=== PATIENT | male | born 1970 | race Caucasian/White ===

== ENCOUNTER → 2021-09-01 09:27 | Outpatient (CLI) | payer BC, SELFPAY ==
[2021-09-01 19:36] LABS: SARS-CoV-2 RNA PCR Positive
== END ==
PROVIDERS: PCP Family Medicine; Visit Provider Family Medicine
DX: U07.1 COVID-19 (principal)
CPT/HCPCS: C9803; U0003; U0005

== ENCOUNTER 2021-10-19 00:16 | Day surgery (SDC) | payer BC, SELFPAY ==
[2021-04-23 14:46] VITALS: BMI 24.6
--- NOTE | 2021-05-13 10:39 | PC.NURSE ---
05/13/21 1039 Mr Royal is hearing impaired and wears cochlear implant. Spoke with Mr. Royal, confirmed colonoscopy appointment Monday05/31/21 arrival at 0715. Questioned about ride for day of procedure, patient states he is still working on it. Educated on importance of ride, inability to drive self that day. Asked to bring name and number of funeral car driver with him on day of procedure.
[2021-10-11 12:22] VITALS: BMI 25.5
[2021-10-19 07:19] VITALS: BP 131/87; PULSE 71; RESP 18; TEMP 35.9; O2SAT 97
[2021-10-19] MEDS: LACTATED RINGERS 1,000 ML 150 ML IV CONT (07:21)
--- NOTE | 2021-10-19 08:20 | WPDANESEPPF ---
Anes - Initial Pre Proc Eval Procedure: Operation Date: 10/19/21 08:30 Proposed Procedures p Screening Colonoscopy - Vicente Lopez MD Date/Time: 10/19/21 08:20 Surgeon: Vicente Lopez MD Pre Op Diagnosis: neoplasm screening Patient Data Age: 51 Gender: M Height: 1.75 m Weight: 79.2 kg Last Vital Signs Temp 96.6 F L 10/19/21 07:19 Pulse 71 10/19/21 07:19 Resp 18 10/19/21 07:19 BP 131/87 10/19/21 07:19 Pulse Ox 97 10/19/21 07:19 Allergies Allergy/AdvReac Type Severity Reaction Status Date / Time acetaminophen [From NyQuil] Allergy Rash Verified 10/19/21 07:16 dextromethorphan Allergy Rash Verified 10/19/21 07:16 [From NyQuil] doxylamine [From NyQuil] Allergy Rash Verified 10/19/21 07:16 pseudoephedrine [From NyQuil] Allergy Rash Verified 10/19/21 07:16 Home Medications Medication Instructions Recorded Confirmed Type No Home Medications 04/23/21 10/19/21 History Patient hx anesthesia problems: none Family hx anesthesia problems: none Results Review: All pre-operative results and documents have been reviewed as part of the pre-operative evaluation. [facility] Surgical History Surgical History (Updated 10/03/19 @ 16:05 by Neelam Velasco CMA) History of cochlear implant Family History Family History Mother Diabetes mellitus Hypertension Family history of elevated blood lipids Cerebrovascular accident Family history of kidney disease Sibling Hypertension Father Family history of cardiovascular disease, Onset Age: 62 Social History Social History (Updated 10/03/19 @ 16:05 by Neelam Velasco CMA) Smoking status: Former smoker Additional smoking assessment comments: Social smoking history Alcohol intake: current Drinks per week: 2 Alcohol use details: Rarely drinks Substance use type: does not use Living arrangements: alone Spiritual care concerns: No Anes - Eval Final PreProcedure Day of Procedure 10/19/21 08:20 Patient weight: normal Heart: regular rate and rhythm Airway: Mallampati scale class II Neurological: alert and oriented Last oral intake: >/= 8 hours ASA classification: II Emergent: no Anesthetic plan: proceed Anesthesia type and monitoring: general GIVS and standard monitoring Results Review: All pre-operative results and documents have been reviewed as part of the pre-operative evaluation. Informed Consent: The patient's anesthetic plan and its attendant risks and benefits were discussed with the patient/family/POA. Questions were solicited and answers provided to the satisfaction of the patient/family/POA.
--- NOTE | 2021-10-19 08:25 | PM.HPGS ---
History of Present Illness History of Present Illness Consent: Risks, benefits, and alternatives have been discussed and questions answered. Patient agrees to proceed with procedure. Chief complaint: neoplasm screening Narrative: Darrell Royal is a 51 year old male here for screening colonoscopy Review of Systems Constitutional: Constitutional: Denies headache(s) and Denies weakness Eyes: Eyes: Denies blurry vision ENT: Denies Normal hearing present, Denies headache(s) and Denies neck pain Cardiovascular: Cardiovascular: Denies chest pain and Denies dyspnea Respiratory: Respiratory: Denies dyspnea Gastrointestinal: Gastrointestinal: Reports no additional gastrointestinal complaints Genitourinary: Genitourinary: Denies dysuria Musculoskeletal: Musculoskeletal: Denies neck pain Integumentary/Breasts: Skin/Breast: Denies dry skin Neurologic: Reports Normal hearing present, Denies headache(s) and Denies weakness Psychiatric: Psychiatric: Denies anxiety Endocrine: Endocrine: Denies change in body appearance Hematologic/Lymphatic: Hematologic/Lymphatic: Denies easy bleeding Allergic/Immunologic: Allergic/Immunologic: Denies urticaria PMFSH Past Medical History Medical History (Updated 10/19/21 @ 08:25 by Vicente Lopez MD) Colon cancer screening Surgical History Surgical History (Updated 10/03/19 @ 16:05 by Neelam Velasco CMA) History of cochlear implant Family History Family History Mother Diabetes mellitus Hypertension Family history of elevated blood lipids Cerebrovascular accident Family history of kidney disease Sibling Hypertension Father Family history of cardiovascular disease, Onset Age: 62 Social History Social History (Updated 10/03/19 @ 16:05 by Neelam Velasco CMA) Smoking status: Former smoker Additional smoking assessment comments: Social smoking history Alcohol intake: current Drinks per week: 2 Alcohol use details: Rarely drinks Substance use type: does not use Living arrangements: alone Spiritual care concerns: No Meds Home Medications and Allergies Home Medications Medication Instructions Recorded Confirmed Type No Home Medications 04/23/21 10/19/21 History Allergies Allergy/AdvReac Type Severity Reaction Status Date / Time acetaminophen [From NyQuil] Allergy Rash Verified 10/19/21 07:16 dextromethorphan Allergy Rash Verified 10/19/21 07:16 [From NyQuil] doxylamine [From NyQuil] Allergy Rash Verified 10/19/21 07:16 pseudoephedrine [From NyQuil] Allergy Rash Verified 10/19/21 07:16 Vital Signs Vital Signs - 24 hr 10/19/21 07:19 Temperature 96.6 F L Pulse Rate 71 Respiratory Rate 18 Blood Pressure 131/87 Pulse Oximetry 97 Exam Const: General: comfortable and no acute distress HENMT: General nose exam: Normal nares present Other: hard of hearing Eyes: General: appearance normal, both eyes and all related structures Neck: Neck: no JVD Resp: Auscultation: clear to auscultation bilaterally Cardio: Rate: regular rate Rhythm: regular rhythm GI: Inspection: non-distended GI Palp: Yes Soft to palpation Skin: General skin exam: normal color Neuro: General: gait normal Speech: normal speech Extrem: General: normal to inspection Psych: Mental Status: mental status grossly normal Assessment and Plan Assessment and plan (1) Colon cancer screening: Code(s): Z12.11 - Encounter for screening for malignant neoplasm of colon Status: Acute Assessment and Plan: colonoscopy
[2021-10-19 08:46] VITALS: BP 99/70; PULSE 79; RESP 28; O2SAT 95
[2021-10-19 08:56] VITALS: BP 100/70; PULSE 76; RESP 14; O2SAT 95
[2021-10-19 09:06] VITALS: BP 115/73; PULSE 69; RESP 20; O2SAT 96
--- NOTE | 2021-10-19 09:15 | SUR.PHASEII ---
Used joselin for interpretation of DC instructions, Rianna #[id number]
== END 2021-10-19 09:20 | disposition home or self-care (01) ==
PROVIDERS: PCP Family Medicine; Visit Provider Internal Medicine Gastroenterology
PROC: 0DJD8ZZ Inspection of Lower Intestinal Tract, Via Natural or Artificial Opening Endoscopic (ICD-10-PCS; CPT 45378; principal; 2021-10-19 08:30)
DX: Z12.11 Encounter for screening for malignant neoplasm of colon (principal); K64.8 Other hemorrhoids; Z87.891 Personal history of nicotine dependence
CPT/HCPCS: 45378; J2704; J7120